=== PATIENT | female | born 2000 | race Caucasian/White ===

== ENCOUNTER 2022-04-28 22:36 | Emergency (ER) | payer OTHER ==
[~2022-04-28] VITALS: Ht 149.9 cm; Wt 75.1 kg
[2022-04-29] MEDS ORDERED: KETOROLAC 60MG/2ML VIAL IM ONE
[2022-04-29] MEDS ORDERED: METHOCARBAMOL 500MG TABLET PO ONE
[2022-04-29] MEDS ORDERED: LORAZEPAM 1MG TABLET PO ONE (01:30)
[2022-04-29] MEDS ORDERED: LIDO1ADH23 TP (02:20)
[2022-04-29] MEDS ORDERED: METH-773 MT (02:20)
[2022-04-29] MEDS ORDERED: NAPR-681 MT (02:20)
[2022-04-29 03:18] VITALS: BP 122/75
== END 2022-04-29 03:18 | disposition home or self-care (01) ==
LOC: ER 22:36
DX: S16.1XXA Strain of muscle, fascia and tendon at neck level, initial encounter (principal); X58.XXXA Exposure to other specified factors, initial encounter; Y93.89 Activity, other specified; Y92.89 Other specified places as the place of occurrence of the external cause; F41.9 Anxiety disorder, unspecified
CPT/HCPCS: 96372; 99283; J1885